=== PATIENT | male | born 1975 | race Two or more races ===

== ENCOUNTER 2019-05-25 14:18 | Emergency (ER) | payer OTHER ==
[~2019-05-25] VITALS: Ht 185.4 cm; Wt 88.9 kg
[2019-05-25] MEDS ORDERED: COZAAR50 MG PO (14:49)
== END 2019-05-25 23:45 | disposition home or self-care (01) ==
LOC: ER 14:18
DX: K52.89 Other specified noninfective gastroenteritis and colitis (principal)

== ENCOUNTER 2025-02-25 19:53 | Emergency (ER) | payer OTHER ==
[~2025-02-25] VITALS: Ht 185.4 cm; Wt 95.3 kg
[~2025-02-25 19:53] MED LIST: COZAAR50 MG PO
[2025-02-25] MEDS ORDERED: 0.9 % SODIUM CHLORIDE 1,000 ML IV ONE (21:00)
[2025-02-25] MEDS ORDERED: FAMOtidine 10 MG/ML (4ML VIAL) IV ONE (21:00)
[2025-02-25] MEDS ORDERED: HYOSCYAMINE SULFATE 0.125 MG TAB.SUBL SL ONE (21:00)
[2025-02-25] MEDS ORDERED: ONDANSETRON HCL 2 MG/ML VIAL IV ONE (21:00)
[2025-02-25] MEDS ORDERED: HYOSCYAMINE SULFATE 0.125 MG TAB.SUBL ONE (21:12)
[2025-02-25] MEDS ORDERED: FAMOTIDINE/PF 20 MG/2 ML VIAL ONE (21:12)
[2025-02-25] MEDS ORDERED: ONDANSETRON HCL 2 MG/ML VIAL ONE (21:12)
[2025-02-25 21:19] LABS: BASO % 0.3 % (0.1-1.2); EOS # 0.04 (0.04-0.54); EOS % 0.4 % (0.7-7.0); LYMPH # 0.43 (1.18-3.74); LYMPH % 4.3 % (19.3-53.1); MEAN PLATELET VOLUME 9.80 fl (9.4-12.4); MONO # 0.55 (0.24-0.82); MONO % 5.4 % (4.7-12.5); NEUT # 9.02 (1.56-6.13); NEUT % 89.3 % (34.0-71.1); RED CELL DISTRIBUTION WIDTH 12.2 % (11.6-14.4)
[2025-02-25 21:34] LABS: INR 1.09
[2025-02-25 21:40] LABS: ALT/SGPT 25.0 U/L (12-78); AST/SGOT 13.0 U/L (15-37); BILIRUBIN TOTAL 1.45 mg/dL (0.3-1.2); BUN CREA RATIO 14.0 (7.0-25.0); CREATININE SERUM 0.86 mg/dL (0.70-1.30); GFR 94.13; GLOBULINA 3.9 G/DL (2.4-3.5); GLUCOSE FASTING 94.0 mg/dL (65-100); OSMOLALITY SERUM 279.0 MOSM/KG (275-295)
[2025-02-25] MEDS ORDERED: METHYLPREDNISOLONE SOD SUCC 40 MG VIAL IM ONE (21:45)
[2025-02-25] MEDS ORDERED: DIPHENHYDRAMINE HCL 50 MG/ML VIAL 1ML IM ONE (21:45)
[2025-02-25] MEDS ORDERED: DIPHENHYDRAMINE HCL 50 MG/ML VIAL 1ML ONE (22:15)
[2025-02-25] MEDS ORDERED: METHYLPREDNISOLONE SOD SUCC 40 MG VIAL ONE (22:15)
[2025-02-25 22:16] LABS: COVID-19 AG NEGATIVE (NEGATIVE)
[2025-02-25] MEDS ORDERED: PROBIOTIC1 EAC2 PO (23:08)
[2025-02-25] MEDS ORDERED: AZITHROMYCIN500 MG PO (23:08)
[2025-02-25] MEDS ORDERED: PEPCID AC20 MG PO (23:08)
[2025-02-25 23:15] LABS: URINE APPEARANCE Clear; URINE BILIRRUBIN Negative (NEGATIVE); URINE BLOOD Moderate; URINE COLOR Yellow; URINE GLUCOSE Negative (NEGATIVE); URINE LEUKOCYTE Negative; URINE NITRATE Negative; URINE PROTEIN Trace (NEGATIVE); URINE UROBILINOGEN 0.2 E.U./dl
[2025-02-25 23:21] LABS: URINE BACTERIA 4.7 uL (0.0-1933); URINE EPITHELIAL CELLS 4.6 uL (0.0-38.8); URINE RBC 136.8 uL (0.0-20.8); URINE WBC 2.6 uL (0.0-23.2)
[2025-02-25 23:34] LABS: URINE CAST 0.14 uL (0.0-1.40); URINE KETONE 40 (NEGATIVE)
== END 2025-02-25 23:23 | disposition home or self-care (01) ==
LOC: ER 19:53
PROVIDERS: General Practice
DX: K52.9 Noninfective gastroenteritis and colitis, unspecified (principal); J00 Acute nasopharyngitis [common cold]; Z20.822 Contact with and (suspected) exposure to COVID-19; I10 Essential (primary) hypertension; Z91.041 Radiographic dye allergy status
CPT/HCPCS: 36415; 74177; Q9965